=== PATIENT | female | born 1950 | race American Indian/Alaskan Native ===

== ENCOUNTER 2016-07-08 14:20 | Emergency (ER) | payer MEDICARE ==
[2016-07-08] MEDS ORDERED: ATIVAN PO ONE (18:58)
--- NOTE | 2016-07-08 19:01 | Emergency Department Report ---
HPI - General Chief Complaint: Anxiety Time Seen by Provider: 07/08/16 18:38 - HPI HPI: This is a 66-year-old -F[place] female who presents to the emergency department, dropped off by her son to be seen, with complaint of anxiety. The patient says that she feels very jittery, feels like her heart is racing and her mouth is dry. She has a history of this. She says it was diagnosed about 8 or 9 months ago at [facility] and she was placed on Ativan. That helped and when it started to run out she saw her primary care doctor who agreed with the diagnosis and placed her in on Ativan as well. She was doing well until yesterday when the symptoms began and no longer has any medication to treat her symptoms. She otherwise has a past nuchal history of high cholesterol and has had some previous surgeries. She denies any chest pain, shortness of breath, nausea, vomiting, back pain or diaphoresis. No recent travel or sick contacts at home. She denies any history of MT, CVA, PE/DVT. She is not a tobacco smoker and denies any illicit drug use. ED Past Medical Hx - Past Medical History Previous Medical History?: No Hx Psychiatric Treatment: Yes (Anxiety) Additional medical history: High cholesterol - Surgical History Past Surgical History?: Yes Additional Surgical History: Knn, total knn replacement, lamenectomy, gallstones , gastric bypass - Social History Smoking Status: Current Every Day Smoker Substance Use Type: None - Medications Home Medications: Home Medications Medication Instructions Recorded Confirmed Last Taken Type Ibuprofen [Motrin 800 MG tab] 1 tab PO Q6H PRN 01/23/16 04/18/16 04/17/16 History RisperDAL 2 mg PO HS 01/23/16 04/18/16 04/17/16 History Simvastatin [Simvastatin] 1 tab PO HS 01/23/16 04/18/16 04/17/16 History Temazepam [Restoril] 1 tab PO HS 01/23/16 04/18/16 04/17/16 History Budesoni/Formotero 160-4.5(Nf) 2 puff IH BID 04/18/16 04/18/16 04/17/16 History [Symbicort 160-4.5 (Nf)] Buprenorphine HCl 8 mg SL BID 04/18/16 04/18/1604/17/17 History Fluticasone/Salmeterol [Advair 1 puff IH BID 04/18/16 04/18/16 04/17/16 History Diskus 100-50 mcg] LORazepam [Ativan] 1 mg PO Q6HR PRN #7 tablet 04/18/16 Unknown Rx Sertraline HCl [Zoloft] 50 mg PO DAILY 04/18/16 04/18/16 04/18/16 01:57 History LORazepam [Ativan] 0.5 mg PO BID PRN #8 tab 07/08/16 Unknown Rx ED Review of Systems ROS: Stated complaint: ANXIETY Other details as noted in HPI Comment: All other systems reviewed and negative Constitutional: denies: chills, fever Eyes: denies: eye pain, eye discharge, vision change ENT: denies: ear pain, throat pain Respiratory: denies: cough, shortness of breath, wheezing Cardiovascular: palpitations. denies: chest pain Gastrointestinal: denies: abdominal pain, nausea, diarrhea Genitourinary: denies: urgency, dysuria, discharge Musculoskeletal: denies: back pain, joint swelling, arthralgia Skin: denies: rash, lesions Neurological: denies: headache, weakness, paresthesias Psychiatric: anxiety. denies: suicidal thoughts Physical Exam - Physical Exam Vital Signs: Vital Signs 07/08/16 07/08/16 07/08/16 15:05 18:30 18:40 Temperature 98.4 F 98.3 F Pulse Rate 83 72 74 Respiratory 16 18 15 Rate Blood Pressure 125/66 Blood Pressure 124/62 [Right] O2 Sat by Pulse 99 100 100 Oximetry 07/08/16 18:41 Temperature Pulse Rate Respiratory 15 Rate Blood Pressure Blood Pressure [Right] O2 Sat by Pulse 100 Oximetry Physical Exam: GENERAL: The patient is well-developed well-nourished. HEENT: Normocephalic. Atraumatic. Extraocular motions are intact. Patient has moist mucous membranes. Pupils equal reactive to light bilaterally. NECK: Supple. Trachea is midline. CHEST/LUNGS: Clear to auscultation. There is no respiratory distress noted. HEART/CARDIOVASCULAR: Regular. There is no tachycardia. There is no gallop rub or murmur. ABDOMEN: Abdomen is soft, nontender. Patient has normal bowel sounds. There is no abdominal distention. SKIN: There is no rash. There is no edema. There is no diaphoresis. NEURO: The patient is awake, alert, and oriented. The patient is cooperative. The patient has no focal neurologic deficits. The patient has normal speech. MUSCULOSKELETAL: There is no tenderness or deformity. There is no limitation range of motion. There is no evidence of acute injury. ED Course Vital Signs 07/08/16 07/08/16 07/08/16 15:05 18:30 18:40 Temperature 98.4 F 98.3 F Pulse Rate 83 72 74 Respiratory 16 18 15 Rate Blood Pressure 125/66 Blood Pressure 124/62 [Right] O2 Sat by Pulse 99 100 100 Oximetry 07/08/16 18:41 Temperature Pulse Rate Respiratory 15 Rate Blood Pressure Blood Pressure [Right] O2 Sat by Pulse 100 Oximetry ED Medical Decision Making - Lab Data Result diagrams: 07/08/16 19:06 07/08/16 19:06 - EKG Data -: EKG Interpreted by Md EKG shows normal: sinus rhythm, axis, intervals, QRS complexes, ST-T waves Rate: normal - EKG Data When compared to previous EKG there are: previous EKG unavailable Interpretation: normal EKG - Medical Decision Making 66-year-old female presents to the emergency department with complaint of some anxiety and/or panic attack with a history of anxiety. She denies any chest pain, back pain. Vitals are stable claiming afebrile and there is no tachycardia or hypoxia. An EKG was done that does not show any signs of ST elevation MT, ischemia or dysrhythmia. Patient's labs are unremarkable including a negative troponin. She says that Ativan has worked well for her in the past that she was given a single dose of Ativan. She was reevaluated multiple times and currently the patient is resting comfortably. She says she no longer has the anxiety or a jittery feeling. She has good follow-up with a primary care doctor. She will be discharged home with a very small amount of Ativan to be taken only when she is having exacerbations of her anxiety. On top of her primary care physician, she's been given a referral for the local mental health facility in case she would like to see a psychiatrist. She will return to the ER with any worsening of her symptoms or any acute distress. - Differential Diagnosis anxiety, panic attack, hyperthyroidism, MT Critical Care Time: No Critical care attestation.: If time is entered above; I have spent that time in minutes in the direct care of this critically ill patient, excluding procedure time. ED Disposition Clinical Impression: Anxiety Disposition: DISCHARGED TO HOME OR SELFCARE Is pt being admited?: No Condition: Stable Instructions: Anxiety (ED) Additional Instructions: Please follow-up with your primary care doctor in the next few days. I have also given you a referral for the [facility] encase she would like to see someone regarding your anxiety and/or panic attacks. Return to the emergency department with any worsening of your symptoms or any acute distress. You've been prescribed a medication that is sedating. Therefore this medication cannot be mixed with alcohol, or taken prior to driving, working, or being responsible for children. Prescriptions: LORazepam [Ativan] 0.5 mg PO BID PRN #8 tab PRN Reason: Anxiety Referrals: PRIMARY CARE, [Primary Care Provider] - [facility] [Outside] - 3-5 Days Time of Disposition: 21:30
[2016-07-08 19:26] LABS: Basophils % (Auto) 0.3 % (0.0-1.8); Eosinophils % (Auto) 0.8 % (0.0-4.3); Hematocrit 40.2 % (30.3-42.9); Hemoglobin 13.2 gm/dl (10.1-14.3); Mean Corpuscular HGB Conc 33 % (30-34); Mean Corpuscular Hemoglobin 30 pg (28-32); Mean Corpuscular Volume 92 fl (79-97); Platelet Count 173 K/mm3 (140-440); Red Blood Count 4.39 M/mm3 (3.65-5.03); Red Cell Distribution Width 15.1 % (13.2-15.2); White Blood Count 8.1 K/mm3 (4.5-11.0)
[2016-07-08 19:42] LABS: Anion Gap 17 mmol/L; Blood Urea Nitrogen 12 mg/dL (7-17); Calcium 8.8 mg/dL (8.4-10.2); Carbon Dioxide 24 mmol/L (22-30); Chloride 103.4 mmol/L (98-107); Glucose 90 mg/dL (65-100); Potassium 3.7 mmol/L (3.6-5.0); Sodium 141 mmol/L (137-145)
[2016-07-08 21:20] VITALS: BP 100/49
== END 2016-07-08 21:35 | disposition home or self-care (01) ==
LOC: ED 14:20
DX: F41.9 Anxiety disorder, unspecified (principal); E78.00 Pure hypercholesterolemia, unspecified; F17.200 Nicotine dependence, unspecified, uncomplicated; Z90.89 Acquired absence of other organs
CPT/HCPCS: 36415; 80048; 84443; 84484; 85025; 93005; 93010; 99283

== ENCOUNTER 2016-08-04 21:32 | Emergency (ER) | payer MEDICARE ==
[2016-08-04 22:50] LABS: Basophils % (Auto) 0.3 % (0.0-1.8); Eosinophils % (Auto) 0.9 % (0.0-4.3); Hematocrit 40.6 % (30.3-42.9); Hemoglobin 13.3 gm/dl (10.1-14.3); Mean Corpuscular HGB Conc 33 % (30-34); Mean Corpuscular Hemoglobin 30 pg (28-32); Mean Corpuscular Volume 91 fl (79-97); Red Blood Count 4.44 M/mm3 (3.65-5.03); Red Cell Distribution Width 14.4 % (13.2-15.2); White Blood Count 10.9 K/mm3 (4.5-11.0)
[2016-08-04 22:51] LABS: Platelet Count 168 K/mm3 (140-440)
[2016-08-05 00:08] LABS: Anion Gap 19 mmol/L; BUN/Creatinine Ratio 17.77; Blood Urea Nitrogen 16 mg/dL (7-17); Calcium 9.2 mg/dL (8.4-10.2); Carbon Dioxide 22 mmol/L (22-30); Chloride 102.2 mmol/L (98-107); Glucose 90 mg/dL (65-100); Potassium 4.4 mmol/L (3.6-5.0); Sodium 139 mmol/L (137-145)
[2016-08-05 00:48] LABS: Urine Drugs of Abuse Note Disclamer
[2016-08-05 01:08] LABS: Bacteria,Urine 1+ /HPF (Negative); Bilirubin,Urine NEG (Negative); Blood,Urine NEG (Negative); Ketones,Urine TR mg/dL (Negative); Leukocyte Esterase,Urine LG (Negative); Mucus,Urine 1+ /HPF; Nitrite,Urine NEG (Negative); Urobilinogen,Urine < 2.0 mg/dL (<2.0)
[2016-08-05] MEDS ORDERED: VISTARIL PO ONE ×2 (11:00→11:01)
--- NOTE | 2016-08-05 11:15 | Emergency Department Report ---
ED Psych HPI - General Chief Complaint: Medical Clearance Stated Complaint: ANXIETY Time Seen by Provider: 08/05/16 10:52 Source: patient Mode of arrival: Ambulatory Limitations: No Limitations - History of Present Illness Initial Comments: 66-year-old female with a past medical history anxiety, high cholesterol, and arthritis presents to the hospital complaining of increased anxiety attacks. The last day or 2 patient states she has been feeling more anxious. She is having heart racing, jaw trembling, and nervous feeling. Patient has a past history of active dependence of the last 6-7 years she has been Buprenorphine described by her pain management doctor. Patient has been taking 8 mg 3 times a day however, this dose was reduced to 8 mg twice a day approximately 5 months ago. Yesterday patient states she was having increased anxiety attacks and therefore was taking more of her Buprenorphine in order to self medicate. She states she took about 5-1/2 tablets yesterday and is concerned that she will possibly overdose. She denies any suicidal homicidal ideation. No complaints of psychosis. Patient complains of generalized 6/10 pain. - Related Data Home Medications Medication Instructions Recorded Confirmed Last Taken Ibuprofen [Motrin 800 MG tab] 1 tab PO Q6H PRN 01/23/16 04/18/16 04/17/16 RisperDAL 2 mg PO HS 01/23/16 04/18/16 04/17/16 Simvastatin [Simvastatin] 1 tab PO HS 01/23/16 04/18/16 04/17/16 Temazepam [Restoril] 1 tab PO HS 01/23/16 04/18/16 04/17/16 Budesoni/Formotero 160-4.5(Nf) 2 puff IH BID 04/18/16 04/18/16 04/17/16 [Symbicort 160-4.5 (Nf)] Buprenorphine HCl 8 mg SL BID 04/18/16 04/18/16 04/17/16 Fluticasone/Salmeterol [Advair 1 puff IH BID 04/18/16 04/18/16 04/17/16 Diskus 100-50 mcg] Sertraline HCl [Zoloft] 50 mg PO DAILY 04/18/16 04/18/16 04/18/16 01:57 Previous Rx's Medication Instructions Recorded Last Taken Type LORazepam [Ativan] 1 mg PO Q6HR PRN #7 tablet 04/18/16 Unknown Rx LORazepam [Ativan] 0.5 mg PO BID PRN #8 tab 07/08/16 Unknown Rx Allergies Allergy/AdvReac Type Severity Reaction Status Date / Time No Known Allergies Allergy Unverified 01/23/16 17:17 ED Review of Systems ROS: Stated complaint: ANXIETY Other details as noted in HPI Comment: All other systems reviewed and negative Other: Constitutional: No fevers chills Eyes: No eye pain visual changes ENT: No ear pain or throat pain Neck: Denies pain Respiratory: Denies cough wheezing shortness of breath Cardiovascular: Denies chest pain, syncope GI: Denies abdominal pain, nausea, vomiting, diarrhea Musculoskeletal: Denies back pain Skin: Denies rash, lesions, erythema Neurologic: Denies headache, numbness, weakness Psychiatric: Denies suicidal ideation, hallucinations ED Past Medical Hx - Past Medical History Hx Arthritis: Yes Hx Psychiatric Treatment: Yes (Anxiety) Additional medical history: High cholesterol - Surgical History Additional Surgical History: Knn, total knee replacement, lamenectomy, gallstones, gastric bypass - Social History Smoking Status: Current Some Day Smoker Substance Use Type: Prescribed - Medications Home Medications: Home Medications Medication Instructions Recorded Confirmed Last Taken Type Ibuprofen [Motrin 800 MG tab] 1 tab PO Q6H PRN 01/23/16 04/18/16 04/17/16 History RisperDAL 2 mg PO HS 01/23/16 04/18/16 04/17/16 History Simvastatin [Simvastatin] 1 tab PO HS 01/23/16 04/18/16 04/17/16 History Temazepam [Restoril] 1 tab PO HS 01/23/16 04/18/16 04/17/16 History Budesoni/Formotero 160-4.5(Nf) 2 puff IH BID 04/18/16 04/18/16 04/17/16 History [Symbicort 160-4.5 (Nf)] Buprenorphine HCl 8 mg SL BID 04/18/16 04/18/16 04/17/16 History Fluticasone/Salmeterol [Advair 1 puff IH BID 04/18/16 04/18/16 04/17/16 History Diskus 100-50 mcg] LORazepam [Ativan] 1 mg PO Q6HR PRN #7 tablet 04/18/16 Unknown Rx Sertraline HCl [Zoloft] 50 mg PO DAILY 04/18/16 04/18/16 04/18/16 01:57 History LORazepam [Ativan] 0.5 mg PO BID PRN #8 tab 07/08/16 Unknown Rx ED Physical Exam - General Limitations: No Limitations - Other Other exam information: General: No limitations, patient is alert in no acute distress Head exam: Atraumatic, normocephalic Eyes exam: Normal appearance, ENT: Moist mucous membrane, normal oropharynx Neck exam: Normal inspection, full range of motion Respiratory exam: Clear to auscultation bilateral, no wheezes, rales, crackles Cardiovascular: Normal rate and rhythm, normal heart sounds Abdomen: Soft, nondistended, and nontender, with normal bowel sounds, no rebound, or guarding Extremity: Full range of motion normal inspection no deformity Back: Normal Inspection, full range of motion, no tenderness Neurologic: Alert, oriented x3, cranial nerves intact, no motor or sensory deficit Psychiatric: normal affect, normal mood Skin: Warm, dry, intact ED Course Vital Signs 08/04/16 08/05/16 08/05/16 22:19 05:57 12:11 Temperature 98.9 F 98.1 F Pulse Rate 82 71 77 Respiratory 14 12 18 Rate Blood Pressure 121/76 105/61 Blood Pressure 140/87 [Left] O2 Sat by Pulse 97 98 99 Oximetry - Reevaluation(s) Reevaluation #1: 08/05/16 15:07 Patient was less anxious after receiving Vistaril - Consultations Consultation #1: 08/05/16 11:16 mental health consult requested ED Medical Decision Making - Lab Data Result diagrams: 08/04/16 22:33 08/04/16 22:33 Lab Results 08/04/16 08/04/16 08/04/16 Range/Units 22:33 22:33 22:33 WBC 10.9 (4.5-11.0) K/mm3 RBC 4.44 (3.65-5.03) M/mm3 Hgb 13.3 (10.1-14.3) gm/dl Hct 40.6 (30.3-42.9) % MCV 91 (79-97) fl MCH 30 (28-32) pg MCHC 33 (30-34) % RDW 14.4 (13.2-15.2) % Plt Count 168 (140-440) K/mm3 Lymph % (Auto) 21.1 (13.4-35.0) % [place] % (Auto) 8.3 H (0.0-7.3) % Eos % (Auto) 0.9 (0.0-4.3) % Baso % (Auto) 0.3 (0.0-1.8) % Lymph # 2.3 (1.2-5.4) K/mm3 [place] # 0.9 H (0.0-0.8) K/mm3 Eos # 0.1 (0.0-0.4) K/mm3 Baso # 0.0 (0.0-0.1) K/mm3 Seg Neutrophils % 69.4 (40.0-70.0) % Seg Neutrophils # 7.6 (1.8-7.7) K/mm3 Sodium 139 (137-145) mmol/L Potassium 4.4 (3.6-5.0) mmol/L Chloride 102.2 (98-107) mmol/L Carbon Dioxide 22 (22-30) mmol/L Anion Gap 19 mmol/L BUN 16 (7-17) mg/dL Creatinine 0.9 (0.7-1.2) mg/dL Estimated GFR > 60 ml/min BUN/Creatinine Ratio 17.77 % Glucose 90 (65-100) mg/dL Calcium 9.2 (8.4-10.2) mg/dL Urine Color (Yellow) Urine Turbidity (Clear) Urine pH (5.0-7.0) Ur Specific [place] (1.003-1.030) Urine Protein (Negative) mg/dL Urine Glucose (UA) (Negative) mg/dL Urine Ketones (Negative) mg/dL Urine Blood (Negative) Urine Nitrite (Negative) Urine Bilirubin (Negative) Urine Urobilinogen (<2.0) mg/dL Ur Leukocyte Esterase (Negative) Urine WBC (Auto) (0.0-6.0) /HPF Urine RBC (Auto) (0.0-6.0) /HPF U Epithel Cells (Auto) (0-13.0) /HPF Urine Bacteria (Auto) (Negative) /HPF Urine Mucus /HPF Urine Opiates Screen Urine Methadone Screen Ur Barbiturates Screen Ur Phencyclidine Scrn Ur Amphetamines Screen U Benzodiazepines Scrn Urine Cocaine Screen U Marijuana (THC) Screen Drugs of Abuse Note Plasma/Serum Alcohol < 0.01 (0-0.07) gm% 08/05/16 08/05/16 Range/Units 00:34 00:34 WBC (4.5-11.0) K/mm3 RBC (3.65-5.03) M/mm3 Hgb (10.1-14.3) gm/dl Hct (30.3-42.9) % MCV (79-97) fl MCH (28-32) pg MCHC (30-34) % RDW (13.2-15.2) % Plt Count (140-440) K/mm3 Lymph % (Auto) (13.4-35.0) % [place] % (Auto) (0.0-7.3) % Eos % (Auto) (0.0-4.3) % Baso % (Auto) (0.0-1.8) % Lymph # (1.2-5.4) K/mm3 [place] # (0.0-0.8) K/mm3 Eos # (0.0-0.4) K/mm3 Baso # (0.0-0.1) K/mm3 Seg Neutrophils % (40.0-70.0) % Seg Neutrophils # (1.8-7.7) K/mm3 Sodium (137-145) mmol/L Potassium (3.6-5.0) mmol/L Chloride (98-107) mmol/L Carbon Dioxide (22-30) mmol/L Anion Gap mmol/L BUN (7-17) mg/dL Creatinine (0.7-1.2) mg/dL Estimated GFR ml/min BUN/Creatinine Ratio % Glucose (65-100) mg/dL Calcium (8.4-10.2) mg/dL Urine Color Yellow (Yellow) Urine Turbidity Clear (Clear) Urine pH 5.0 (5.0-7.0) Ur Specific [place] 1.026 (1.003-1.030) Urine Protein 30 mg/dl (Negative) mg/dL Urine Glucose (UA) Neg (Negative) mg/dL Urine Ketones Tr (Negative) mg/dL Urine Blood Neg (Negative) Urine Nitrite Neg (Negative) Urine Bilirubin Neg (Negative) Urine Urobilinogen < 2.0 (<2.0) mg/dL Ur Leukocyte Esterase Lg (Negative) Urine WBC (Auto) 2.0 (0.0-6.0) /HPF Urine RBC (Auto) 3.0 (0.0-6.0) /HPF U Epithel Cells (Auto) 3.0 (0-13.0) /HPF Urine Bacteria (Auto) 1+ (Negative) /HPF Urine Mucus 1+ /HPF Urine Opiates Screen Presumptive negative Urine Methadone Screen Presumptive negative Ur Barbiturates Screen Presumptive negative Ur Phencyclidine Scrn Presumptive negative Ur Amphetamines Screen Presumptive negative U Benzodiazepines Scrn Presumptive negative Urine Cocaine Screen Presumptive negative U Marijuana (THC) Screen Presumptive negative Drugs of Abuse Note Disclamer Plasma/Serum Alcohol (0-0.07) gm% - Medical Decision Making Patient was seen and evaluated by mental health. She qualifies for voluntary inpatient treatment for substance dependence. Patient is medically cleared for transfer. Transfer form signed. - Differential Diagnosis necrotic dependence, anxiety, withdrawal, drug abuse Critical Care Time: No Critical care attestation.: If time is entered above; I have spent that time in minutes in the direct care of this critically ill patient, excluding procedure time. ED Disposition Clinical Impression: Narcotic dependence, Narcotic abuse, Anxiety, Medical clearance for psychiatric admission Disposition: DC/TX PSY HOSP/PSY UNIT Is pt being admited?: No Does the pt Need Aspirin: No Condition: Stable Time of Disposition: 15:08 (awaiting acceptance/ transport)
[2016-08-05 15:07] VITALS: BP 127/63
--- NOTE | 2016-08-05 16:41 | Consultation ---
History of Present Illness - Reason for Consult Consult date: 08/05/16 Reason for consult: Mental Health Evaluation Requesting physician: ДМИТРИЙ WALLACE - Chief Complaint Chief complaint: "I want to get off the buprenorphine" - History of Present Psychiatric Illness 66-year-old female with a past medical history anxiety, high cholesterol, and arthritis presents to the hospital complaining of increased anxiety attacks. Today patient is calm and cooperative during the assessment. She stated having chronic arthritis/knee pain from surgery. She was prescribed opioids and subsequently became addicted. She was transitioned to buprenorphine 6 years ago. Her dose of buprenorphine was titrated down from 8 mg TID to 8 mg BID 5 months ago. She stated that her pain has gotten worse and she has became more anxious. She took 5-1/2 tablets yesterday and now she is afraid of overdosing. She stated that she was not trying to kill herself, but wanted the pain to go away. She denies any current or past suicidal attempts. She denies SI/HI's, AVH' s, or depression symptoms. She is adamant about wanting to be detoxed off buprenorphine. She denies recreational drug use or alcohol consumption (etoh). Medications and Allergies Allergies Allergy/AdvReac Type Severity Reaction Status Date / Time No Known Allergies Allergy Unverified 01/23/16 17:17 Home Medications Medication Instructions Recorded Confirmed Last Taken Type Ibuprofen [Motrin 800 MG tab] 1 tab PO Q6H PRN 01/23/16 04/18/16 04/17/16 History RisperDAL 2 mg PO HS 01/23/16 04/18/16 04/17/16 History Simvastatin [Simvastatin] 1 tab PO HS 01/23/16 04/18/16 04/17/16 History Temazepam [Restoril] 1 tab PO HS 01/23/16 04/18/16 04/17/16 History Budesoni/Formotero 160-4.5(Nf) 2 puff IH BID 04/18/16 04/18/16 04/17/16 History [Symbicort 160-4.5 (Nf)] Buprenorphine HCl 8 mg SL BID 04/18/16 04/18/16 04/17/16 History Fluticasone/Salmeterol [Advair 1 puff IH BID 04/18/16 04/18/16 04/17/16 History Diskus 100-50 mcg] LORazepam [Ativan] 1 mg PO Q6HR PRN #7 tablet 04/18/16 Unknown Rx Sertraline HCl [Zoloft] 50 mg PO DAILY 04/18/16 04/18/16 04/18/16 01:57 History LORazepam [Ativan] 0.5 mg PO BID PRN #8 tab 07/08/16 Unknown Rx Past psychiatric history - Past Medical History Past Medical History: other (High cholesterol) Past Surgical History: No surgical history - past Psychiatric treatment and history Psych: Anxiety psychiatric treatment history: She admit to anxiety. Her PCP is managing her symptoms. She denies a fam psy hx. - Social History Social history: lives with family Mental Status Exam - Vital signs Last Vital Signs Temp 98.1 F 08/05/16 05:57 Pulse 78 08/05/16 15:07 Resp 16 08/05/16 15:07 BP 127/63 08/05/16 15:07 Pulse Ox 97 08/05/16 15:07 - Exam Narrative exam: ROS (-) depression MSE: Appearance: cooperative, calm Behavior: good eye contact Speech: regular rate and tone Mood: "okay" Affect: congruent to mood Thought Process: linear Thought Content: denies SI/HI's and AVH's Motor Activity: lying in bed Cognition: a/ox 3 Insight: fair Judgment: fair Results Result Diagrams: 08/04/16 22:33 08/04/16 22:33 Abnormal lab results 08/04/16 Range/Units 22:33 [place] % (Auto) 8.3 H (0.0-7.3) % [place] # 0.9 H (0.0-0.8) K/mm3 All other labs normal. Assessment and Plan Assessment and plan: Impression: Opioid Use DO. 66-year-old female with a past medical history anxiety, high cholesterol, and arthritis presents to the hospital complaining of increased anxiety attacks. Today patient is calm and cooperative during the assessment. She stated having chronic arthritis/knee pain from surgery. She was prescribed opioids and subsequently became addicted. She was transitioned to buprenorphine 6 years ago. Her dose of buprenorphine was titrated down from 8 mg TID to 8 mg BID 5 months ago. She denies SI/HI's and AVH's. Recommendation/Plan: Patient accepted at [facility] for detox program ( volunteer). Pending transport time.
== END 2016-08-05 17:12 ==
LOC: ED 21:32
DX: F41.9 Anxiety disorder, unspecified (principal); F17.200 Nicotine dependence, unspecified, uncomplicated; F11.10 Opioid abuse, uncomplicated; M19.90 Unspecified osteoarthritis, unspecified site; E78.00 Pure hypercholesterolemia, unspecified
CPT/HCPCS: 36415; 80048; 80307; 81001; 85025; 99285; G0480; 80320; Q0177

== ENCOUNTER 2016-10-06 17:14 | Emergency (ER) | payer MEDICARE ==
[2016-10-06 18:19] LABS: Basophils % (Auto) 0.4 % (0.0-1.8); Hematocrit 36.6 % (30.3-42.9); Hemoglobin 12.5 gm/dl (10.1-14.3); Mean Corpuscular HGB Conc 34 % (30-34); Mean Corpuscular Hemoglobin 29 pg (28-32); Mean Corpuscular Volume 86 fl (79-97); Platelet Count 173 K/mm3 (140-440); Red Blood Count 4.26 M/mm3 (3.65-5.03); Red Cell Distribution Width 14.1 % (13.2-15.2); White Blood Count 7.6 K/mm3 (4.5-11.0)
[2016-10-06 18:24] VITALS: BP 134/60
[2016-10-06 18:36] LABS: Alanine Aminotransferase 15 units/L (7-56); Albumin 3.8 g/dL (3.9-5); Albumin/Globulin Ratio 1.4 %; Alkaline Phosphatase 70 units/L (35-129); Anion Gap 17 mmol/L; Blood Urea Nitrogen 10 mg/dL (7-17); Calcium 9.2 mg/dL (8.4-10.2); Carbon Dioxide 24 mmol/L (22-30); Chloride 102.7 mmol/L (98-107); Glucose 92 mg/dL (65-100); Lipase 22 units/L (13-60); Potassium 4.3 mmol/L (3.6-5.0); Sodium 139 mmol/L (137-145); Total Protein 6.5 g/dL (6.3-8.2)
[2016-10-06] MEDS ORDERED: NORCO 10/325 PO ONE (18:36)
--- NOTE | 2016-10-06 19:29 | Emergency Department Report ---
ED General Adult HPI - General Chief complaint: Abdominal Pain Stated complaint: RECTAL PAIN Time Seen by Provider: 10/06/16 18:36 Source: EMS Mode of arrival: Ambulatory Limitations: No Limitations - History of Present Illness Initial comments: Patient is a 66-year-old female past medical history of bladder prolapse who presents with rectal pain. Patient states is rectal pain as severe as a 10 out of 10. It is a sharp and achy pain does not radiate the pain is located at her rectum. Nothing that she does seems to make it better or worse. She states that this pain has been going on for the last 2 months. She was last seen by colorectal surgeon 4 days ago. She states that he did not prescribe her narcotics because she did not want to take. Patient has a history of opioid abuse. However her surgeon suggested oral narcotic medication for the pain. Patient states that this is the same type of pain she's been feeling for the last 2 months but she cannot "take it anymore." She denies having any diarrhea or constipation she has no chest pain no dysuria no nausea or vomiting. Severity scale (0 -10): 9 - Related Data Home Medications Medication Instructions Recorded Confirmed Last Taken Ibuprofen [Motrin 800 MG tab] 1 tab PO Q6H PRN 01/23/16 04/18/16 04/17/16 RisperDAL 2 mg PO HS 01/23/16 04/18/16 04/17/16 Simvastatin [Simvastatin] 1 tab PO HS 01/23/16 04/18/16 04/17/16 Temazepam [Restoril] 1 tab PO HS 01/23/16 04/18/16 04/17/16 Budesoni/Formotero 160-4.5(Nf) 2 puff IH BID 04/18/16 04/18/16 04/17/16 [Symbicort 160-4.5 (Nf)] Buprenorphine HCl 8 mg SL BID 04/18/16 04/18/16 04/17/16 Fluticasone/Salmeterol [Advair 1 puff IH BID 04/18/16 04/18/16 04/17/16 Diskus 100-50 mcg] Sertraline HCl [Zoloft] 50 mg PO DAILY 04/18/16 04/18/16 04/18/16 01:57 Previous Rx's Medication Instructions Recorded Last Taken Type LORazepam [Ativan] 1 mg PO Q6HR PRN #7 tablet 04/18/16 Unknown Rx LORazepam [Ativan] 0.5 mg PO BID PRN #8 tab 07/08/16 Unknown Rx oxyCODONE /ACETAMINOPHEN [Percocet 1 tab PO Q6HR PRN #15 tablet 10/06/16 Unknown Rx 5/325] Allergies Allergy/AdvReac Type Severity Reaction Status Date / Time No Known Allergies Allergy Unverified 01/23/16 17:17 ED Review of Systems ROS: Stated complaint: RECTAL PAIN Other details as noted in HPI Constitutional: denies: chills, fever Eyes: denies: eye pain, eye discharge, vision change ENT: denies: ear pain, throat pain Respiratory: denies: cough, shortness of breath, wheezing Cardiovascular: denies: chest pain, palpitations Endocrine: no symptoms reported Gastrointestinal: other (rectal pain) Genitourinary: denies: urgency, dysuria, discharge Musculoskeletal: denies: back pain, joint swelling, arthralgia Skin: denies: rash, lesions Neurological: denies: headache, weakness, paresthesias Psychiatric: denies: anxiety, depression Hematological/Lymphatic: denies: easy bleeding, easy bruising ED Past Medical Hx - Past Medical History Previous Medical History?: Yes Hx Hypertension: No Hx CVA: No Hx Heart Attack/AMI: No Hx Congestive Heart Failure: No Hx Diabetes: No Hx Deep Vein Thrombosis: No Hx Pulmonary Embolism: No Hx GERD: No Hx Liver Disease: No Hx Renal Disease: No Hx of Cancer: No Hx Sickle Cell Disease: No Hx Arthritis: Yes Hx Headaches / Migraines: No Hx Seizures: No Hx Kidney Stones: No Hx Psychiatric Treatment: Yes (Anxiety) Hx Asthma: No Hx COPD: Yes Hx Tuberculosis: No Hx Dementia: No Hx HIV: No Additional medical history: High cholesterol - Surgical History Past Surgical History?: Yes Hx Coronary Stent: No Hx Open Heart Surgery: No Hx Pacemaker: No Hx Internal Defibrillator: No Hx Cholecystectomy: Yes Hx Appendectomy: No Hx Breast Surgery: No Additional Surgical History: Knn, total knn replacement, lamenectomy, gallstones , gastric bypass - Social History Smoking Status: Current Every Day Smoker Substance Use Type: None - Medications Home Medications: Home Medications Medication Instructions Recorded Confirmed Last Taken Type Ibuprofen [Motrin 800 MG tab] 1 tab PO Q6H PRN 01/23/16 04/18/16 04/17/16 History RisperDAL 2 mg PO HS 01/23/16 04/18/16 04/17/16 History Simvastatin [Simvastatin] 1 tab PO HS 01/23/16 04/18/16 04/17/16 History Temazepam [Restoril] 1 tab PO HS 01/23/16 04/18/16 04/17/16 History Budesoni/Formotero 160-4.5(Nf) 2 puff IH BID 04/18/16 04/18/16 04/17/16 History [Symbicort 160-4.5 (Nf)] Buprenorphine HCl 8 mg SL BID 04/18/16 04/18/16 04/17/16 History Fluticasone/Salmeterol [Advair 1 puff IH BID 04/18/16 04/18/16 04/17/16 History Diskus 100-50 mcg] LORazepam [Ativan] 1 mg PO Q6HR PRN #7 tablet 04/18/16 Unknown Rx Sertraline HCl [Zoloft] 50 mg PO DAILY 04/18/16 04/18/16 04/18/16 01:57 History LORazepam [Ativan] 0.5 mg PO BID PRN #8 tab 07/08/16 Unknown Rx oxyCODONE /ACETAMINOPHEN [Percocet 1 tab PO Q6HR PRN #15 tablet 10/06/16 Unknown Rx 5/325] ED Physical Exam - General Limitations: No Limitations General appearance: alert - Head Head exam: Present: atraumatic, normocephalic - Eye Eye exam: Present: normal appearance - ENT ENT exam: Present: mucous membranes moist - Neck Neck exam: Present: normal inspection - Respiratory Respiratory exam: Present: normal lung sounds bilaterally. Absent: respiratory distress - Cardiovascular Cardiovascular Exam: Present: regular rate, normal rhythm. Absent: systolic murmur, diastolic murmur, rubs, gallop - GI/Abdominal GI/Abdominal exam: Present: soft, other (no hemorrhoids or anal fissure no prolapse rectum.). Absent: distended, tenderness - Rectal Rectal exam: Present: normal rectal tone, tenderness. Absent: mass - Extremities Exam Extremities exam: Present: normal inspection - Back Exam Back exam: Present: normal inspection - Neurological Exam Neurological exam: Present: alert, oriented X3 - Psychiatric Psychiatric exam: Present: normal affect, normal mood - Skin Skin exam: Present: warm, dry, intact, normal color. Absent: rash ED Course Vital Signs 10/06/16 10/06/16 10/06/16 17:28 17:30 17:40 Temperature 98.2 F Pulse Rate 68 63 67 Respiratory 16 15 24 Rate Blood Pressure 132/60 132/60 Blood Pressure 130/60 [Right] O2 Sat by Pulse 100 100 100 Oximetry 10/06/16 10/06/16 10/06/16 17:50 17:55 18:02 Temperature Pulse Rate 63 Respiratory 17 14 Rate Blood Pressure 132/60 132/60 Blood Pressure [Right] O2 Sat by Pulse 100 100 99 Oximetry 10/06/16 10/06/16 10/06/16 18:22 18:57 19:57 Temperature 98.2 F Pulse Rate 90 Respiratory 14 18 18 Rate Blood Pressure Blood Pressure 134/60 [Right] O2 Sat by Pulse 100 Oximetry 10/06/16 20:31 Temperature Pulse Rate Respiratory 18 Rate Blood Pressure Blood Pressure [Right] O2 Sat by Pulse Oximetry - Reevaluation(s) Reevaluation #1: 10/06/16 20:27 Patient is still saying that she is in pain. Will give patient trial of oral narcotic medication. Reevaluation #2: 10/06/16 20:56 Patient states that her pain is a lot better we'll send patient home. ED Medical Decision Making - Lab Data Result diagrams: 10/06/16 18:03 10/06/16 18:03 Laboratory Results - last 24 hr 10/06/16 10/06/16 10/06/16 18:03 18:03 18:21 WBC 7.6 RBC 4.26 Hgb 12.5 Hct 36.6 MCV 86 MCH 29 MCHC 34 RDW 14.1 Plt Count 173 Lymph % (Auto) 22.9 Mcleod % (Auto) 6.9 Eos % (Auto) 1.0 Baso % (Auto) 0.4 Lymph # 1.7 Mcleod # 0.5 Eos # 0.1 Baso # 0.0 Seg Neutrophils % 68.8 Seg Neutrophils # 5.2 Sodium 139 Potassium 4.3 Chloride 102.7 Carbon Dioxide 24 Anion Gap 17 BUN 10 Creatinine 0.5 L Estimated GFR > 60 BUN/Creatinine Ratio 20.00 Glucose 92 Calcium 9.2 Total Bilirubin 0.80 AST 17 ALT 15 Alkaline Phosphatase 70 Total Protein 6.5 Albumin 3.8 L Albumin/Globulin Ratio 1.4 Lipase 22 Urine Color Yellow Urine Turbidity Clear Urine pH 6.0 Ur Specific Dunellen 1.019 Urine Protein <15 mg/dl Urine Glucose (UA) Neg Urine Ketones Tr Urine Blood Neg Urine Nitrite Neg Urine Bilirubin Neg Urine Urobilinogen 2.0 Ur Leukocyte Esterase Neg Urine WBC (Auto) < 1.0 Urine RBC (Auto) 1.0 U Epithel Cells (Auto) < 1.0 Urine Mucus 1+ Critical care attestation.: If time is entered above; I have spent that time in minutes in the direct care of this critically ill patient, excluding procedure time. ED Disposition Clinical Impression: Rectal pain, chronic Disposition: DC-01 TO HOME OR SELFCARE Is pt being admited?: No Does the pt Need Aspirin: No Condition: Stable Instructions: Abdominal Pain (ED) Prescriptions: oxyCODONE /ACETAMINOPHEN [Percocet 5/325] 1 tab PO Q6HR PRN #15 tablet PRN Reason: Pain Referrals: PRIMARY CARE [Primary Care Provider] - 3-5 Days Time of Disposition: 20:57
[2016-10-06 19:48] LABS: Bilirubin,Urine NEG (Negative); Blood,Urine NEG (Negative); Ketones,Urine TR mg/dL (Negative); Leukocyte Esterase,Urine NEG (Negative); Mucus,Urine 1+ /HPF; Nitrite,Urine NEG (Negative); Protein,Urine <15 mg/dL mg/dL (Negative); WBC,Urine < 1.0 /HPF (0.0-6.0)
[2016-10-06] MEDS ORDERED: PERCOCET 5/325 PO ONE (20:20)
== END 2016-10-06 21:26 | disposition home or self-care (01) ==
LOC: ED 17:14
DX: K62.89 Other specified diseases of anus and rectum (principal); G89.29 Other chronic pain; M19.90 Unspecified osteoarthritis, unspecified site; J44.9 Chronic obstructive pulmonary disease, unspecified; E78.00 Pure hypercholesterolemia, unspecified; F17.210 Nicotine dependence, cigarettes, uncomplicated
CPT/HCPCS: 36415; 80053; 81001; 83690; 85025; 99284

== ENCOUNTER 2016-10-11 13:45 | Emergency (ER) | payer MEDICARE ==
[2016-10-11 14:35] LABS: Hematocrit 41.7 % (30.3-42.9); Hemoglobin 13.5 gm/dl (10.1-14.3); Mean Corpuscular HGB Conc 32 % (30-34); Mean Corpuscular Hemoglobin 29 pg (28-32); Mean Corpuscular Volume 89 fl (79-97); Platelet Count 180 K/mm3 (140-440); Red Blood Count 4.68 M/mm3 (3.65-5.03); Red Cell Distribution Width 14.9 % (13.2-15.2); White Blood Count 6.8 K/mm3 (4.5-11.0)
[2016-10-11 14:46] LABS: Anion Gap 16 mmol/L; BUN/Creatinine Ratio 21.66; Blood Urea Nitrogen 13 mg/dL (7-17); Calcium 9.1 mg/dL (8.4-10.2); Carbon Dioxide 23 mmol/L (22-30); Chloride 106.6 mmol/L (98-107); Glucose 100 mg/dL (65-100); Potassium 3.8 mmol/L (3.6-5.0); Sodium 142 mmol/L (137-145)
[2016-10-11 15:41] LABS: Urine Drugs of Abuse Note Disclamer
[2016-10-11 16:04] LABS: Bilirubin,Urine NEG (Negative); Blood,Urine NEG (Negative); Ketones,Urine NEG (Negative); Leukocyte Esterase,Urine NEG (Negative); Mucus,Urine 1+ /HPF; Nitrite,Urine NEG (Negative); Urobilinogen,Urine < 2.0 mg/dL (<2.0)
[2016-10-11 22:32] LABS: Alanine Aminotransferase 13 units/L (7-56); Albumin 3.9 g/dL (3.9-5); Albumin/Globulin Ratio 1.2 %; Alkaline Phosphatase 71 units/L (35-129); Anion Gap 16 mmol/L; Blood Urea Nitrogen 14 mg/dL (7-17); Calcium 9.1 mg/dL (8.4-10.2); Carbon Dioxide 25 mmol/L (22-30); Chloride 107.1 mmol/L (98-107); Glucose 91 mg/dL (65-100); Potassium 4.2 mmol/L (3.6-5.0); Sodium 144 mmol/L (137-145); Total Protein 7.1 g/dL (6.3-8.2)
--- NOTE | 2016-10-11 23:43 | Emergency Department Report ---
ED Psych HPI - General Chief Complaint: Medical Clearance Stated Complaint: WITHDRAW,ANXIETY,SHAKING Time Seen by Provider: 10/11/16 21:32 Source: patient Mode of arrival: Ambulatory - History of Present Illness MD Complaint: feels depressed, other (detox from pain medication) -: Gradual Associated Psychiatric Symptoms: depression History of same: Yes Quality: constant Improves With: none Worsens With: none Associated Symptoms: insomnia. denies: confusion, headache, shortness of breath , nausea, vomiting Treatments Prior to Arrival: none - Related Data Home Medications Medication Instructions Recorded Confirmed Last Taken Ibuprofen [Motrin 800 MG tab] 1 tab PO Q6H PRN 01/23/16 04/18/16 04/17/16 RisperDAL 2 mg PO HS 01/23/16 04/18/16 04/17/16 Simvastatin [Simvastatin] 1 tab PO HS 01/23/16 04/18/16 04/17/16 Temazepam [Restoril] 1 tab PO HS 01/23/16 04/18/16 04/17/16 Budesoni/Formotero 160-4.5(Nf) 2 puff IH BID 04/18/16 04/18/16 04/17/16 [Symbicort 160-4.5 (Nf)] Buprenorphine HCl 8 mg SL BID 04/18/16 04/18/16 04/17/16 Fluticasone/Salmeterol [Advair 1 puff IH BID 04/18/16 04/18/16 04/17/16 Diskus 100-50 mcg] Sertraline HCl [Zoloft] 50 mg PO DAILY 04/18/16 04/18/16 04/18/16 01:57 Previous Rx's Medication Instructions Recorded Last Taken Type LORazepam [Ativan] 1 mg PO Q6HR PRN #7 tablet 04/18/16 Unknown Rx LORazepam [Ativan] 0.5 mg PO BID PRN #8 tab 07/08/16 Unknown Rx oxyCODONE /ACETAMINOPHEN [Percocet 1 tab PO Q6HR PRN #15 tablet 10/06/16 Unknown Rx 5/325] Allergies Allergy/AdvReac Type Severity Reaction Status Date / Time No Known Allergies Allergy Verified 10/11/16 14:09 ED Review of Systems ROS: Stated complaint: WITHDRAW,ANXIETY,SHAKING Other details as noted in HPI Comment: All other systems reviewed and negative ED Past Medical Hx - Past Medical History Hx Hypertension: No Hx CVA: No Hx Heart Attack/AMI: No Hx Congestive Heart Failure: No Hx Diabetes: No Hx Deep Vein Thrombosis: No Hx Pulmonary Embolism: No Hx GERD: No Hx Liver Disease: No Hx Renal Disease: No Hx Sickle Cell Disease: No Hx Arthritis: Yes Hx Headaches / Migraines: No Hx Seizures: No Hx Kidney Stones: No Hx Psychiatric Treatment: Yes (Anxiety) Hx Asthma: No Hx COPD: Yes Hx Tuberculosis: No Hx Dementia: No Hx HIV: No Additional medical history: High cholesterol - Surgical History Hx Coronary Stent: No Hx Open Heart Surgery: No Hx Pacemaker: No Hx Internal Defibrillator: No Hx Cholecystectomy: Yes Hx Appendectomy: No Hx Breast Surgery: No Additional Surgical History: Knn, total knee replacement, lamenectomy, gastric bypass - Social History Smoking Status: Current Every Day Smoker Substance Use Type: Prescribed - Medications Home Medications: Home Medications Medication Instructions Recorded Confirmed Last Taken Type Ibuprofen [Motrin 800 MG tab] 1 tab PO Q6H PRN 01/23/16 04/18/16 04/17/16 History RisperDAL 2 mg PO HS 01/23/16 04/18/16 04/17/16 History Simvastatin [Simvastatin] 1 tab PO HS 01/23/16 04/18/16 04/17/16 History Temazepam [Restoril] 1 tab PO HS 01/23/16 04/18/16 04/17/16 History Budesoni/Formotero 160-4.5(Nf) 2 puff IH BID 04/18/16 04/18/16 04/17/16 History [Symbicort 160-4.5 (Nf)] Buprenorphine HCl 8 mg SL BID 04/18/16 04/18/16 04/17/16 History Fluticasone/Salmeterol [Advair 1 puff IH BID 04/18/16 04/18/16 04/17/16 History Diskus 100-50 mcg] LORazepam [Ativan] 1 mg PO Q6HR PRN #7 tablet 04/18/16 Unknown Rx Sertraline HCl [Zoloft] 50 mg PO DAILY 04/18/16 04/18/16 04/18/16 01:57 History LORazepam [Ativan] 0.5 mg PO BID PRN #8 tab 07/08/16 Unknown Rx oxyCODONE /ACETAMINOPHEN [Percocet 1 tab PO Q6HR PRN #15 tablet 10/06/16 Unknown Rx 5/325] ED Physical Exam - General Limitations: No Limitations General appearance: alert, in no apparent distress - Head Head exam: Present: atraumatic, normocephalic - Eye Eye exam: Present: normal appearance - ENT ENT exam: Present: mucous membranes moist - Neck Neck exam: Present: normal inspection - Respiratory Respiratory exam: Present: normal lung sounds bilaterally. Absent: respiratory distress - Cardiovascular Cardiovascular Exam: Present: regular rate, normal rhythm. Absent: systolic murmur, diastolic murmur, rubs, gallop - GI/Abdominal GI/Abdominal exam: Present: soft, normal bowel sounds - Extremities Exam Extremities exam: Present: normal inspection - Back Exam Back exam: Present: normal inspection - Neurological Exam Neurological exam: Present: alert, oriented X3 - Psychiatric Psychiatric exam: Present: depressed. Absent: homicidal ideation, suicidal ideation - Skin Skin exam: Present: warm, dry, intact, normal color. Absent: rash ED Course Vital Signs 10/11/16 10/11/16 10/11/16 14:03 20:03 21:00 Temperature 98.4 F 98.2 F Pulse Rate 96 H 83 98 H Respiratory 18 18 18 Rate Blood Pressure 123/78 153/83 Blood Pressure 156/67 [Right] O2 Sat by Pulse 96 99 99 Oximetry ED Medical Decision Making - Lab Data Result diagrams: 10/11/16 14:19 10/11/16 21:54 - Medical Decision Making patient [id number] well here in the ER, she has chronic issue with her bladder prolapse and rectal pain that has been follow up by GI and also by urology, and even though is still an issue its not what got her in the ER today , she understand that the rectal pain is a chronic problem and its being address by the specialist, she recently was at [facility] and felt much improved when she did a 28 day detox , she really wants to go again , i talk to psych global human resources director who is trying to contact the OPERATOR MAINTAINER to see if we can do this , and it wont be till tomorrow morning when this will happen . i talked to the patient and she agrees on waiting till them to get her disposition done. Critical care attestation.: If time is entered above; I have spent that time in minutes in the direct care of this critically ill patient, excluding procedure time. ED Disposition Clinical Impression: Rectal pain, chronic, Opioid dependence Disposition: DC/TX-65 PSY HOSP/PSY UNIT Is pt being admited?: No Does the pt Need Aspirin: No Condition: Good Referrals: GLORIA OAKES MD [Primary Care Provider] - 3-5 Days Time of Disposition: 23:44
[2016-10-12 07:32] VITALS: BP 106/47
--- NOTE | 2016-10-12 10:52 | Consultation ---
History of Present Illness - Reason for Consult Consult date: 10/12/16 Reason for consult: Mental Health Evaluation Requesting physician: DAVID ROYAL - Chief Complaint Chief complaint: "I want help" - History of Present Psychiatric Illness 66 y.o. AA female presenting to [facility] for opioid detox and anxiety. Today patient is calm, cooperative, but anxious during the assessment. She stated having back and knee surgery years ago and took Vicodin for 6 months. She felt that she was addicted to the Vicodin, so she sought out a pain doctor. She was transitioned to Suboxone (10 yrs). She stated that she detoxed at [facility] August 2016 (successfully). Most recently, she been experiencing rectal pain and was told that her bladder is pushing down on her rectum. She was prescribed Percocet recently and now have relapsed (opioid). She stated taking 3 to 4 Percocet a day. She took a Percocet yesterday before coming to the hospital. She stated that she takes Vistaril for anxiety and Zoloft for depression/anxiety. She stated being sad and withdrawn during her initial detox. She denies SI/HI's and AVH's. She denies being depressed, but feel sad "sometimes" because of the opioid addiction. She denies recreational drug use and alcohol consumption (etoh). Patient see a GI specialist and a Urologist for her medical issue (prolapsed bladder). Medications and Allergies Allergies Allergy/AdvReac Type Severity Reaction Status Date / Time No Known Allergies Allergy Verified 10/11/16 14:09 Home Medications Medication Instructions Recorded Confirmed Last Taken Type Ibuprofen [Motrin 800 MG tab] 1 tab PO Q6H PRN 01/23/16 04/18/16 04/17/16 History RisperDAL 2 mg PO HS 01/23/16 04/18/16 04/17/16 History Simvastatin [Simvastatin] 1 tab PO HS 01/23/16 04/18/16 04/17/16 History Temazepam [Restoril] 1 tab PO HS 01/23/16 04/18/16 04/17/16 History Budesoni/Formotero 160-4.5(Nf) 2 puff IH BID 04/18/16 04/18/16 04/17/16 History [Symbicort 160-4.5 (Nf)] Buprenorphine HCl 8 mg SL BID 04/18/16 04/18/16 04/17/16 History Fluticasone/Salmeterol [Advair 1 puff IH BID 04/18/16 04/18/16 04/17/16 History Diskus 100-50 mcg] LORazepam [Ativan] 1 mg PO Q6HR PRN #7 tablet 04/18/16 Unknown Rx Sertraline HCl [Zoloft] 50 mg PO DAILY 04/18/16 04/18/16 04/18/16 01:57 History LORazepam [Ativan] 0.5 mg PO BID PRN #8 tab 07/08/16 Unknown Rx oxyCODONE /ACETAMINOPHEN [Percocet 1 tab PO Q6HR PRN #15 tablet 10/06/16 Unknown Rx 5/325] Mental Status Exam - Vital signs Last Vital Signs Temp 98 F 10/12/16 07:31 Pulse 66 10/12/16 07:31 Resp 18 10/12/16 07:31 BP 106/47 10/12/16 07:31 Pulse Ox 98 10/12/16 07:31 - Exam Narrative exam: ROS: (-) depression MSE: Appearance: calm, cooperative, anxious Behavior: regular eye contact Speech: regular rate and tone Mood: "okay" Affect: congruent to mood Thought Process: linear Thought Content: denies HI/SI's and AVH's Motor Activity: lying down in the bed Cognition: A/Ox 3 Insight: linear Judgment: linear Results Result Diagrams: 10/11/16 14:19 10/11/16 21:54 Abnormal lab results 10/11/16 10/11/16 Range/Units 14:18 21:54 Chloride 107.1 H (98-107) mmol/L Creatinine 0.6 L (0.7-1.2) mg/dL All other labs normal. Assessment and Plan Assessment and plan: Impression: Historical Dx: RAPHAEL, Possibly Depression. Opioid Use DO. Today patient is calm, cooperative, but anxious during the assessment. UDS negative. No acute withdrawals noted (opioid). DDx: R/O Mood DO Recommendation/Plan: Pending detox program at [facility] today. Start Vistaril 25 mg PO BID for anxiety, Zofran 4 mg PO ODT Q6hrs PRN for nausea, and Zoloft 50 mg PO for depression/anxiety. Discussed possible suicidality/ medication induced carmen with patient reference Citlaly.
[2016-10-12] MEDS ORDERED: VISTARIL PO SCH (12:00)
[2016-10-12] MEDS ORDERED: ZOFRAN ODT PO PRN (12:19)
[2016-10-12] MEDS ORDERED: ZOLOFT PO SCH (14:00)
== END 2016-10-12 19:04 ==
LOC: EEVIPCON 13:45 → ED 13:45
DX: F41.9 Anxiety disorder, unspecified (principal); K62.89 Other specified diseases of anus and rectum; F32.9 Major depressive disorder, single episode, unspecified; F11.20 Opioid dependence, uncomplicated; J44.9 Chronic obstructive pulmonary disease, unspecified; M19.90 Unspecified osteoarthritis, unspecified site; E78.00 Pure hypercholesterolemia, unspecified; F17.210 Nicotine dependence, cigarettes, uncomplicated
CPT/HCPCS: 36415; 80048; 80053; 80307; 81001; 84443; 85025; 99285; G0480; 80320; Q0162; Q0177